=== PATIENT | male | born 1950 | race Caucasian/White ===

== ENCOUNTER 2022-09-24 15:03 | Emergency (ER) | payer MEDICARE, BC, SELFPAY ==
[2022-09-24 15:09] VITALS: BP 142/73; PULSE 112; RESP 18; TEMP 36.6; O2SAT 99
[2022-09-24 15:33] LABS: Bilirubin Negative (Negative); Blood Moderate (Negative); Clarity Clear (Clear); Glucose Negative (Negative); Ketones Negative (Negative); Leukocyte Esterase Negative (Negative); Nitrite Negative (Negative); Specific Gravity 1.015 (1.005-1.025); Urobilinogen 0.2 EU/dL (Up TO 0.2)
[2022-09-24 15:41] LABS: Bacteria Negative HPF (Negative); C & S Indicated? No; Crystals Negative HPF (Negative); Epithelial Cells Rare HPF (Negative); Mucus Negative (Negative); RBC 20-50 HPF (0-2); WBC 0-2 HPF (0-5)
--- NOTE | 2022-09-24 15:47 | DI.CT_ITS ---
Exam(s) CT ABDOMEN PELVIS W EXAM: CT ABDOMEN PELVIS W CLINICAL HISTORY: hematuria. TECHNIQUE: Imaging Protocol: Axial computed tomography images with coronal and sagittal reformatted images were created and reviewed CONTRAST MATERIAL: Intravenous: Omnipaque 350 Contrast volume:100 ml Oral: no COMPARISON: No exams were available for comparison FINDINGS: ABDOMEN: Lung Bases: Small hiatal hernia. Prior CABG. Liver: Normal density. No measurable mass. Gallbladder and biliary tract: Contracted with several stones. No inflammation or wall thickening. No biliary dilation. Pancreas: Normal density, no abnormal calcifications or inflammatory process. Spleen: Normal. Kidneys: Normal size, contour and axis. No radiodense stones or obstructive uropathy. Few small bila teral cysts are noted. No suspicious masses seen. Adrenal glands: No masses seen. Abdominal Aorta: Abdominal portion non-dilated. Moderate atherosclerotic changes. PELVIS: Bladder: Mild wall thickening. No calculi.No focal mass. Bowel: No obstruction or bowel wall thickening. Appendix normal. Mild sigmoid diverticulosis. No ev idence of diverticulitis. Peritoneal cavity: No ascites, collection or mesenteric inflammatory response. Bones: Within normal limits for age. Reproductive organs: Markedly enlarged heterogeneous prostate measuring 6.1 cm transverse by 7 cm AP by 7.5 cm cephalo caudad. This causes significant impression upon the base of the bladder. Lymph nodes: Unremarkable. Impression: Markedly enlarged heterogeneous prostate. No evidence of urinary tract calcifications, renal or bladder masses. RADIATION DOSE DELIVERED: 593.17mGy.cm Total DLP DATA REPOSITORY: All CT scans at this facility are submitted to the National Radiology Data Registry (NRDR) Dose Index Registry (DIR) with the [employer] (A[employer]). RADIATION OPTIMIZATION: All CT scans at this facility use at least one of these dose optimization te chniques: automated exposure control; mA and/or kV adjustment per patient size (includes targeted exa ms where dose is matched to clinical indication); or iterative reconstruction.
[2022-09-24 16:02] LABS: Abs Immature Grans 0.01 10^3/uL (0.0-0.06); Absolute Basophil Count 0.09 10^3/uL (0.0-0.2); Absolute Eosinophil Count 0.12 10^3/uL (0.0-0.7); Absolute Lymphocyte Count 1.81 10^3/uL (1.2-3.4); Absolute Monocyte Count 0.96 10^3/uL (0.1-0.8); Absolute Neutrophil Count 5.27 10^3/uL (1.2-6.7); Basophils % 1.1; Eosinophils % 1.5; HCT 44.2 % (40.0-50.0); HGB 14.8 g/dL (13.5-17.5); Immature Grans % 0.1; Lymphocytes % 21.9; MCH 29.4 pg (27.0-33.0); MCHC 33.5 % (32.0-36.0); MCV 88 fL (80-95); MPV 9.3 fL (8.0-11.0); Monocytes % 11.6; Neutrophils % 63.8; Platelet Count 279 10^3/uL (130-400); RBC 5.03 10^6/uL (4.36-5.78); RDW 13.2 % (11.8-14.1); RDW-SD 42.6 fL; WBC 8.26 10^3/uL (4.4-10.8)
[2022-09-24 16:51] LABS: ALT 33 U/L (16-63); AST 20 U/L (15-37); Albumin 4.1 g/dL (3.4-5.0); Alkaline Phosphatase 55 U/L (46-116); Anion Gap 7.9 mmol/L (3-11); BUN 25 mg/dL (7-18); Bilirubin, Total 1.2 mg/dL (0.2-1.0); CO2 28.1 mmol/L (21.0-32.0); Calcium 9.4 mg/dL (8.5-10.1); Chloride 103 mmol/L (98-107); Estimated GFR 81.47 (mL/min/1.73m2); Glucose 99 mg/dL (74-106); Potassium 4.3 mmol/L (3.5-5.1); Sodium 139 mmol/L (136-145); Total Protein 7.5 g/dL (6.4-8.2)
[2022-09-24] MEDS: Omnipaque 350 MG/ML 100 ML BTL IJ (17:07)
--- NOTE | 2022-09-24 17:38 | DI.VRAD_ITS ---
PROCEDURE INFORMATION: Exam: CT Abdomen And Pelvis With Contrast Exam date and time: 09/24/2022 5:04 PM Age: 71 years old Clinical indication: Other: Gross hematuria TECHNIQUE: Imaging protocol: Computed tomography of the abdomen and pelvis with contrast. Radiation optimization: All CT scans at this facility use at least one of these dose optimization techniques: automated exposure control; mA and/or kV adjustment per patient size (includes targeted exams where dose is matched to clinical indication); or iterative reconstruction. Contrast material: OMNIPAQUE 350; Contrast volume: 100 ml; Contrast route: INTRAVENOUS (IV); COMPARISON: No relevant prior studies available. FINDINGS: Liver: Normal. No mass. Gallbladder and bile ducts: There are calcified stones in the gallbladder. Pancreas: Normal. No ductal dilation. Spleen: Normal. No splenomegaly. Adrenal glands: Normal. No mass. Kidneys and ureters: There is a simple-appearing cyst in the right kidney. No follow-up necessary. There is a simple appearing cyst in the left kidney. No follow-up necessary. No hydronephrosis. Stomach and bowel: Unremarkable. No obstruction. No mucosal thickening. Appendix: No evidence of appendicitis. Intraperitoneal space: No free air. No significant fluid collection. Vasculature: No abdominal aortic aneurysm. Lymph nodes: Unremarkable. No enlarged lymph nodes. Urinary bladder: Unremarkable as visualized. Reproductive: The prostate gland is markedly enlarged. The seminal vesicles are enlarged. Bones/joints: Degenerative changes in the lumbar spine. No acute fracture. Soft tissues: Unremarkable. IMPRESSION: Marked prostatomegaly. Enlarged seminal vesicles concerning for seminal vesicular invasion. Nonemergent urology consultation is recommended. Dictated and Authenticated by: Lucero Romero MD. Ordering:HERNAN Sr MD
[2022-09-24 18:11] VITALS: BP 113/86; PULSE 112; TEMP 37.5; O2SAT 98
--- NOTE | 2022-09-24 19:38 | W.ED.GENAD ---
Discharge Plan Disposition Patient Disposition: Home Condition: Stable Discharge Details Clinical Impression: Hematuria Primary Care Provider: Jose Antonio Ga ED Provider: Orin Vaughn Home Meds and New Rx's Prescriptions: Continued pantoprazole [Protonix] 20 mg Tablet,Delayed Release (Dr/Ec) 20 mg PO DAILY Lumigan 0.01 % Drops 1 drp Discharge Instructions Instructions: Hematuria (ED) Additional Instructions: Follow-up at [facility] at your scheduled appointment Keep yourself hydrated, recommend at least 10 to 8 ounce glasses of water daily If the clots worsen and he started having difficulty urinating you may need a catheter to be placed and irrigation to be performed, I recommend you be reevaluated if this happens If you develop fever, chills, or with any new or worsening complaints, please return for reassessment Your urine has been sent for culture, if it is positive for urinary tract infection, we may call in antibiotics and let you know Medical Decision Making Repeat pulse of 98 Hemodynamically stable Have evidence of secondary infection, send urine for culture We will follow-up on Sunday for scheduled MRI regarding possible seminal vesicle invasion which was mentioned on CT scan Patient without reported urinary retention and passing urine without difficulty, no indication for emergent Goncalves catheter placement, patient feels comfortable constipation follow-up and will return should he start having symptoms of urinary retention or any new or worsening complaints He has close outpatient follow-up which I think is reasonable at this time discharged home in stable condition with stable vital Medical Records Medical records reviewed: Yes I reviewed the patient's medical records. Lab Data Lab results reviewed: Yes I reviewed the patient's lab results. Sign Out No HPI General Date/Time Provider Initiated Documentation: 09/24/22 15:37. HPI Narrative: This 71-year-old male presents with reports of breath hematuria with cough. He states that this started last evening. He states he has been told that he has an enlarged prostate and is an elevated PSA. He is currently being evaluated at [facility] and is actually scheduled for an MRI on Sunday. Denies prior history of urinary retention or hematuria in the past. States he had some slight pressure in his bladder but states he is able to empty completely and does not feel like he is retaining urine. He denies any fever or chills. He denies any flank pain. He denies any history of anticoagulant use or trauma. He denies known cancer history. He actually states his prior to arrival his symptoms improved and he did not have any follow-up at that time small 2 mm area in his urine which she presented in the emergency department. Related Data Home Medications Medication Instructions Recorded Confirmed bimatoprost 0.01 % eye drops 1 drp 09/24/22 (Lumigan) pantoprazole 20 mg tablet,delayed 20 mg PO DAILY 09/24/22 09/24/22 release (Protonix) Allergies Allergy/AdvReac Type Severity Reaction Status Date / Time pollen extracts Allergy Unverified 09/24/22 15:15 General Stated Complaint: Urinary JAMES: 3 Review of Systems All systems reviewed & are unremarkable except as noted in HPI and below PFSH All Active Problems (Updated 09/24/22 @ 18:06 by FRANKY Farnsworth) Hematuria (Acute) Social History Smoking/Tobacco Use Status: Never Smoking risk assessment performed?: Yes Alcohol Intake: current Alcohol Intake frequency: holidays/special occasions only Drug use: Never Substance use type: does not use Do you feel safe at home: Yes Do you feel safe in your relationship?: Yes Exam Const General: cooperative and comfortable Eyes Pupils: PERRL EOM: EOM intact bilaterally Resp Effort & Inspection: normal respiratory effort Cardio Rate: regular rate GI Other: No CVA tenderness, no abdominal tenderness Skin General skin exam: no rashes or lesions noted Neuro General: patient alert and patient oriented x3 Course Vital Signs Vital signs: Vital Signs Temperature 36.6 C 09/24/22 15:09 Pulse 112 H 09/24/22 15:09 Respiratory Rate 18 09/24/22 15:09 Blood Pressure 142/73 H 09/24/22 15:09 Pulse Oximetry 99 09/24/22 15:09 Temperature 37.5 C 09/24/22 18:11 Temperature Source Tympanic 09/24/22 18:11 Pulse 112 H 09/24/22 18:11 Respiratory Rate 18 09/24/22 15:09 Respiratory Effort Non-Labored 09/24/22 15:18 Blood Pressure 113/86 09/24/22 18:11 Pulse Oximetry 98 09/24/22 18:11 Oxygen Delivery Method Room Air 09/24/22 18:11 Oxygen Flow Rate 0 09/24/22 18:11 Pain Level 2 09/24/22 18:11 Lab/Test Results Lab/Test Results: 09/24/22 15:09 Urine - Clean Catch Urine Culture - Pending Laboratory Tests Range/Units 09/24/22 09/24/22 09/24/22 15:25 15:57 15:57 WBC (4.4-10.8) 10^3/uL 8.26 RBC (4.36-5.78) 10^6/uL 5.03 Hgb (13.5-17.5) g/dL 14.8 Hct (40.0-50.0) % 44.2 MCV (80-95) fL 88 MCH (27.0-33.0) pg 29.4 MCHC (32.0-36.0) % 33.5 RDW (11.8-14.1) % 13.2 Plt Count (130-400) 10^3/uL 279 MPV (8.0-11.0) fL 9.3 Immature Gran % 0.1 Neutrophils % 63.8 Lymphocytes % 21.9 Monocytes % 11.6 Eosinophils % 1.5 Basophils % 1.1 Nucleated RBC % (0.0-0.3) % 0.0 Absolute Neutrophils (1.2-6.7) 10^3/uL 5.27 Absolute Lymphocytes (1.2-3.4) 10^3/uL 1.81 Absolute Monocytes (0.1-0.8) 10^3/uL 0.96 H Absolute Eosinophils (0.0-0.7) 10^3/uL 0.12 Absolute Basophils (0.0-0.2) 10^3/uL 0.09 Sodium (136-145) mmol/L 139 Potassium (3.5-5.1) mmol/L 4.3 Chloride (98-107) mmol/L 103 Carbon Dioxide (21.0-32.0) mmol/L 28.1 Anion Gap (3-11) mmol/L 7.9 BUN (7-18) mg/dL 25 H Creatinine (0.70-1.30) mg/dL 1.0 Est GFR (CKD-EPI 2020) (mL/min/1.73m2) 81.47 Glucose (74-106) mg/dL 99 Calcium (8.5-10.1) mg/dL 9.4 Total Bilirubin (0.2-1.0) mg/dL 1.2 H AST (15-37) U/L 20 ALT (16-63) U/L 33 Alkaline Phosphatase (46-116) U/L 55 Total Protein (6.4-8.2) g/dL 7.5 Albumin (3.4-5.0) g/dL 4.1 Urine Color (Yellow) Yellow Urine Clarity (Clear) Clear Urine pH (5-8) 6.0 Ur Specific Boyds (1.005-1.025) 1.015 Urine Protein (Negative) mg/dL Negative Urine Ketones (Negative) mg/dL Negative Urine Blood (Negative) Moderate H Urine Nitrite (Negative) Negative Urine Bilirubin (Negative) Negative Urine Urobilinogen (Up TO 0.2) EU/dL 0.2 Ur Leukocyte Esterase (Negative) Negative Urine RBC (0-2) HPF 20-50 H Urine WBC (0-5) HPF 0-2 Ur Epithelial Cells (Negative) HPF Rare Urine Crystals (Negative) HPF Negative Urine Bacteria (Negative) HPF Negative Urine Mucus (Negative) Negative Ur Culture Indicated? No Urine Glucose (Negative) mg/dL Negative PAWSS Have you Been Recently Intoxicated or Drunk Within the Last 30 days?: No Have you Ever Experienced Previous Episodes of Alcohol Withdrawal?: No Have you ever Experienced Withdrawal Seizures?: No Have you ever Experienced Delirium Tremens(DT)s?: No Have you ever undergone Alcohol Rehabilitation Treatment (i.e, inpt ot outpatient treatment programs)?: No Have you ever Experienced Blackouts?: No Have you ever Combined Alcohol with other Downers within the last 90 days?: No Have you ever Combined Alcohol with any other Substance of Abuse during the last 90 days?: No Positive Blood Alcohol level on Presentation? [PCS.BAL]: No Evidence of Increased Autonomic Activity (i.e. HR>120, tremor, sweating, agitation, nausea)?: No Result: 0
== END 2022-09-24 18:25 | disposition home or self-care (01) ==
LOC: ER 18:29
PROVIDERS: Emergency Provider Physician Assistant; PCP Family Medicine
DX: R31.9 Hematuria, unspecified (principal); R93.89 Abnormal findings on diagnostic imaging of other specified body structures
CPT/HCPCS: 80053; 99285; 74177; 81003; 81015; 85025; 87086; 99284; J3490